=== PATIENT | male | born 1975 | race Caucasian/White ===

== ENCOUNTER 2018-07-22 08:30 | Emergency (ER) | payer OTHER ==
[2018-07-22] MEDS: KETOROLAC 60 MG INJ IM (08:53)
== END 2018-07-22 09:25 | disposition home or self-care (01) ==
LOC: FTE 08:30
DX: J02.9 Acute pharyngitis, unspecified (principal); Z21 Asymptomatic human immunodeficiency virus [HIV] infection status
CPT/HCPCS: 96372; 99284-25; J1885